=== PATIENT | female | born 2000 | race Caucasian/White ===

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

== ENCOUNTER → 2022-11-05 | Outpatient (REF) | payer OTHER ==
[~2022-11-05] MED LIST changes: -NS 1,000 ML IV ONE
[2022-11-05 17:30] LABS: CHOLESTEROL RISK RATIO 3.16 (<5); HDL CHOLESTEROL 44.5 MG/DL (>40); LDL CHOLESTEROL 80.1 MG/DL (<100); NON-HDL-C 96.5 MG/DL; THYROID STIMULATING HORMONE 2.887 uIU/ML (0.48-4.17)
[2022-11-05 17:46] LABS: BASO # 0.1 10^3/uL (0.0-0.2); BASO % 0.6 % (0.0-1.0); EOS # 0.1 10^3/uL (0.0-0.5); EOS % 0.9 % (0.0-3.0); HEMATOCRIT 41.7 % (36.0-47.0); HEMOGLOBIN 12.6 g/dl (12.0-15.5); LYMPH # 3.2 10^3/uL (1.5-5.0); LYMPH % 29.8 % (24.0-44.0); MEAN CORPUSCULAR HGB CONC 30.2 g/dl (32.0-36.5); MEAN CORPUSCULAR VOLUME 86.2 fl (80.0-96.0); MONO % 9.5 % (2.0-8.0); NEUTROPHILS # 6.4 10^3/uL (1.5-8.5); NEUTROPHILS % 58.8 % (36.0-66.0); PLATELET COUNT, AUTOMATED 427 10^3/uL (150-450); RED BLOOD COUNT 4.84 10^6/uL (4.00-5.40); WHITE BLOOD COUNT 10.8 10^3/uL (4.0-10.0)
== END ==
LOC: M LAB REF 16:20
PROVIDERS: ATTEND Pediatrics
DX: E66.01 Morbid (severe) obesity due to excess calories (principal)

== ENCOUNTER 2023-07-16 21:52 | Emergency (ER) | payer OTHER ==
[~2023-07-16] VITALS: Ht 154.9 cm; Wt 122.2 kg
[2023-07-16] MEDS ORDERED: TOPI100T9 (21:57)
[2023-07-16 22:38] LABS: HEMATOCRIT 40.3 % (36.0-47.0); HEMOGLOBIN 12.6 g/dl (12.0-15.5); MEAN CORPUSCULAR HEMOGLOBIN 27.6 pg (27.0-33.0); MEAN CORPUSCULAR HGB CONC 31.3 g/dl (32.0-36.5); MEAN CORPUSCULAR VOLUME 88.4 fl (80.0-96.0); PLATELET COUNT, AUTOMATED 376 10^3/uL (150-450); RED BLOOD COUNT 4.56 10^6/uL (4.00-5.40); WHITE BLOOD COUNT 15.3 10^3/uL (4.0-10.0)
[2023-07-16] MEDS ORDERED: MORPHINE 2 MG/ML 1ML VIAL IV PRN (22:50)
[2023-07-16 23:04] LABS: LIPASE 28 U/L (12-53)
[2023-07-16 23:07] LABS: ALBUMIN 3.4 G/DL (3.2-5.2); ALKALINE PHOSPHATASE 96 U/L (46-116); ALT/SGPT 11 U/L (7.0-40); AST/SGOT 8 U/L (<34); BILIRUBIN,DIRECT < 0.1 MG/DL (<0.4); BILIRUBIN,TOTAL 0.2 MG/DL (0.3-1.2); BLOOD UREA NITROGEN 11 MG/DL (9-23); CALCIUM LEVEL 8.9 MG/DL (8.5-10.1); CARBON DIOXIDE LEVEL 28 MMOL/L (20-31); CHLORIDE LEVEL 105 MMOL/L (98-107); CREATININE FOR GFR 0.77 MG/DL (0.55-1.30); GLUCOSE, FASTING 97 MG/DL (60-100); POTASSIUM SERUM 4.5 MMOL/L (3.5-5.1); SODIUM LEVEL 139 MMOL/L (136-145); TOTAL PROTEIN 6.8 G/DL (5.7-8.2)
[2023-07-16] MEDS ORDERED: ISOVUE-370 76% 100ML VIAL As Ordered ONE (23:11)
[2023-07-16 23:28] LABS: ANISOCYTOSIS 1+; ATYPICAL LYMPH 1 % (0-5); BASOPHILS 1 % (0-1); EOSINOPHILS 1 % (0-3); HYPOCHROMASIA 1+; LYMPHOCYTES 31 % (16-44); MONOCYTES 8 % (0-5); NEUTROPHILS 58 % (28-66); PLATELET ESTIMATE NORMAL (NORMAL)
[2023-07-16 23:46] LABS: RSV AMPLIFICATION NEGATIVE (NEGATIVE)
[2023-07-17 00:34] LABS: HCG, SERUM QUALITATIVE NEGATIVE (NEGATIVE)
[2023-07-17 01:15] VITALS: TEMP 97.8
[2023-07-17 01:30] VITALS: BP 121/57; O2SAT 100
[2023-07-17] MEDS ORDERED: KETO10TAB PO (01:56)
[2023-07-17] MEDS ORDERED: NITR1CAP11 PO (01:56)
[2023-07-17] MEDS ORDERED: NITROFURANTOIN (MACROBID) 100 MG CAP PO ONE (02:00)
== END 2023-07-17 02:10 | disposition home or self-care (01) ==
LOC: M ED 21:52
DX: N30.00 Acute cystitis without hematuria (principal); R10.9 Unspecified abdominal pain; K21.9 Gastro-esophageal reflux disease without esophagitis; Z88.0 Allergy status to penicillin; Z79.899 Other long term (current) drug therapy
CPT/HCPCS: 74177; 80048; 80076; 81001; 83690; 84703; 85025; 87086; 87631; 96374; 99284; Q9967

== ENCOUNTER 2023-08-22 05:55 | Emergency (ER) | payer OTHER ==
[~2023-08-22] VITALS: Ht 154.9 cm; Wt 120.9 kg
[~2023-08-22 05:55] MED LIST changes: +KETO10TAB PO; +NITR1CAP11 PO; +TOPI100T9
[2023-08-22 06:55] LABS: BASO % 0.2 % (0.0-1.0); EOS % 0.2 % (0.0-3.0); HEMATOCRIT 45.6 % (36.0-47.0); HEMOGLOBIN 14.3 g/dl (12.0-15.5); LYMPH # 1.1 10^3/uL (1.5-5.0); MEAN CORPUSCULAR HEMOGLOBIN 27.4 pg (27.0-33.0); MEAN CORPUSCULAR HGB CONC 31.4 g/dl (32.0-36.5); MEAN CORPUSCULAR VOLUME 87.4 fl (80.0-96.0); MONO % 7.5 % (2.0-8.0); NEUTROPHILS # 11.3 10^3/uL (1.5-8.5); NEUTROPHILS % 83.7 % (36.0-66.0); PLATELET COUNT, AUTOMATED 342 10^3/uL (150-450); RED BLOOD COUNT 5.22 10^6/uL (4.00-5.40); WHITE BLOOD COUNT 13.5 10^3/uL (4.0-10.0)
[2023-08-22 07:14] LABS: LIPASE 20 U/L (12-53)
[2023-08-22 07:17] LABS: ALBUMIN 3.5 G/DL (3.2-5.2); ALKALINE PHOSPHATASE 80 U/L (46-116); ALT/SGPT 16 U/L (7.0-40); AST/SGOT 12 U/L (<34); BILIRUBIN,DIRECT 0.2 MG/DL (<0.4); BILIRUBIN,TOTAL 0.6 MG/DL (0.3-1.2); BLOOD UREA NITROGEN 12 MG/DL (9-23); CALCIUM LEVEL 8.6 MG/DL (8.5-10.1); CARBON DIOXIDE LEVEL 27 MMOL/L (20-31); CHLORIDE LEVEL 107 MMOL/L (98-107); CREATININE FOR GFR 0.84 MG/DL (0.55-1.30); GLUCOSE, FASTING 113 MG/DL (60-100); POTASSIUM SERUM 4.2 MMOL/L (3.5-5.1); SODIUM LEVEL 141 MMOL/L (136-145); TOTAL PROTEIN 7.2 G/DL (5.7-8.2)
[2023-08-22 07:25] LABS: HCG, SERUM QUALITATIVE NEGATIVE (NEGATIVE)
[2023-08-22] MEDS ORDERED: NS 1,000 ML IV ONE (08:15)
[2023-08-22] MEDS ORDERED: ONDANSETRON 4MG 2ML VIAL IV ONE (08:15)
[2023-08-22] MEDS ORDERED: ISOVUE-370 76% 100ML VIAL As Ordered ONE (08:44)
[2023-08-22 09:26] LABS: RSV AMPLIFICATION NEGATIVE (NEGATIVE)
[2023-08-22] MEDS ORDERED: ONDA4TAB6 PO (10:19)
[2023-08-22 10:58] VITALS: BP 118/69; TEMP 98.6; O2SAT 100
== END 2023-08-22 11:18 | disposition home or self-care (01) ==
LOC: M ED 05:55
DX: A08.4 Viral intestinal infection, unspecified (principal); Z88.0 Allergy status to penicillin; F32.A Depression, unspecified; K21.9 Gastro-esophageal reflux disease without esophagitis; Z11.52 Encounter for screening for COVID-19
CPT/HCPCS: 74177; 80053; 82248; 83690; 84703; 85025; 87631; 96374; 99284; J2405; Q9967

== ENCOUNTER → 2023-12-29 | Outpatient (REF) | payer OTHER ==
[2023-12-29 17:02] LABS: HEMOGLOBIN A1c 4.9 % (4.0-6.0)
[2023-12-29 17:23] LABS: THYROID STIMULATING HORMONE 1.75 uIU/ML (0.55-4.78); TOTAL 25(OH) VITAMIN D 16.9 NG/ML (20.0-100.0)
== END ==
LOC: M LAB REF 16:28
PROVIDERS: ATTEND Pediatrics
DX: Z68.43 Body mass index [BMI] 50.0-59.9, adult (principal); E66.01 Morbid (severe) obesity due to excess calories; E55.9 Vitamin D deficiency, unspecified